=== PATIENT | female | born 1990 | race Caucasian/White ===

== ENCOUNTER 2017-03-24 22:30 | Outpatient (CLI) | payer OTHER | END 2017-03-25 00:54 | disposition home or self-care (01) | LOC: GENOP 22:30 | DX: O99.89 Other specified diseases and conditions complicating pregnancy, childbirth and the puerperium (principal); R10.9 Unspecified abdominal pain; M54.9 Dorsalgia, unspecified; O36.8130 Decreased fetal movements, third trimester, not applicable or unspecified; Z3A.34 34 weeks gestation of pregnancy | CPT/HCPCS: 59025; 82731 ==

== ENCOUNTER → 2017-04-05 | Outpatient (CLI) | payer OTHER ==
[2017-04-05 18:32] LABS: HEMOGLOBIN 10.1 gm/dl (12.3-15.3); RED BLOOD COUNT 4.23 M/UL (4.00-5.10); WHITE BLOOD COUNT 11.7 K/UL (4.5-11.0)
== END ==
LOC: LBRF 17:41
PROVIDERS: Obstetrics & Gynecology
DX: O26.813 Pregnancy related exhaustion and fatigue, third trimester (principal)
CPT/HCPCS: 80076; 82239; 85025

== ENCOUNTER 2017-07-02 17:58 | Emergency (ER) | payer OTHER ==
[2017-07-02 18:29] LABS: HEMOGLOBIN 11.6 gm/dl (12.3-15.3); RED BLOOD COUNT 4.9 M/UL (4.00-5.10); WHITE BLOOD COUNT 9.3 K/UL (4.5-11.0)
[2017-07-02 18:55] LABS: BUN/CREATININE RATIO 12 (0-10)
== END 2017-07-02 21:03 | disposition home or self-care (01) ==
LOC: ER1 17:58
PROVIDERS: Physician Assistant Medical
DX: R10.84 Generalized abdominal pain (principal); F17.210 Nicotine dependence, cigarettes, uncomplicated
CPT/HCPCS: 36415; 80053; 81001; 82150; 83690; 84703; 85025; 96361; 96374; 96375; 99284; C9113; J2405; J7050; Q9962